=== PATIENT | male | born 1960 | race Caucasian/White ===

== ENCOUNTER 2016-11-18 13:16 | Emergency (ER) | payer OTHER ==
[~2016-11-18] VITALS: Ht 172.7 cm; Wt 85.1 kg
[~2016-11-18 13:16] MED LIST: DIAZ5TAB PO; GABA-502 PO; LORA2TAB PO; Muscle relaxer; NAPR500T PO; NPR500T PO; OXYC-474 PO
[2016-11-18 13:20] VITALS: BP 129/78; PULSE 110; RESP 20; O2SAT 95
[2016-11-18] MEDS ORDERED: DOXE10CA PO (13:27)
[2016-11-18] MEDS ORDERED: AMT25T PO ×2 (13:27)
[2016-11-18] MEDS ORDERED: AMOX500C2 PO (13:28)
[2016-11-18] MEDS ORDERED: CYCL10TA9 PO (13:28)
[2016-11-18] MEDS ORDERED: OXYC1TAB24 PO (13:28)
[2016-11-18] MEDS ORDERED: IBUP-1827 PO (13:28)
[2016-11-18] MEDS ORDERED: GABA800T2 PO (13:28)
--- NOTE | 2016-11-18 13:30 | ED.REPORT ---
HPI-Dental/Mouth Prob Date of Service Nov 18, 2016 ED Provider: History of Present Illness: 55-year-old male here with dental pain. On he saw his dentist and had his left central incisor anesthetized to have work done on it. The next day his left upper mouth started hurting, he was seen again and started on amoxicillin and pain meds. He took his amoxicillin yesterday and last took it at 5:30 this morning. Yesterday pain started right in the area where he received his anesthesia as well and is spreading across his upper lip. This is now the area of most pain. Denies fever or systemic symptoms. Nursing Notes Stated Complaint: FACE SWOLLEN Chief Complaint: Dental Nursing Notes Reviewed: Yes Allergies: Coded Allergies: hydrocodone (Verified Allergy, Unknown, 11/18/16) Scheduled Amitriptyline (Amitriptyline) 25 Mg Tab 25 MG PO QAM Amitriptyline (Amitriptyline) 25 Mg Tab 75 MG PO HS Amoxicillin (Amoxicillin) 500 Mg Capsule 500 MG PO TID Clindamycin HCl (Cleocin) 150 Mg Capsule 450 MG PO TID Doxepin (Doxepin) 10 Mg Capsule 20 MG PO HS Gabapentin (Gabapentin) 800 Mg Tablet 800 MG PO TID Ibuprofen (Ibuprofen) 600 Mg Tablet 600 MG PO TID Scheduled PRN Cyclobenzaprine (Cyclobenzaprine) 10 Mg Tablet 10 MG PO TID PRN PRN Spasm oxyCODONE-Acetaminophen 5-325 mg (oxyCODONE-Acetaminophen 5-325 mg) 1 Each Tablet 1 TAB PO Q6H PRN PRN For Pain General Time Seen by MD: 13:26 Chief Complaint Mouth pain Hx Obtained From: Patient Arrived By: Walk-in Onset Occurred: 2 days ago Context of Onset: Recent dental procedure Location: : Gum maxillary left: Gum maxillary right: Lip upper: Tooth upper R molar Severity: Current: Severe Severity: Maximum: Severe Recent Healthcare: Recent doctor visit Similar Sx Previous: No Past Medical History Past Medical History chronic back pain Past Surgical History lumbar spinal surgery Smoking History Current Every Day Smoker Social History Alcohol Use: In recovery Drug Use: THC Other Social History: Good social support, Local resident Ambulatory Status Independent Review of Systems Basic Review of Systems Eyes: Vision NL, No discharge Cardiovascular: No chest pain, No dyspnea on exertion, No orthopnea, No parox noct dyspnea, No palpitations Hematologic: No bleeding, No bruising Allergy / Immune: No allergy Neurologic: NL mental status, No weakness, No numbness Psychiatric: Normal thought content Physical Exam Initial Vital Signs Vital Signs (First) Date Time Temp Pulse Resp B/P Pulse Ox O2 Delivery O2 Flow Rate FiO2 11/18/16 13:20 36.6 110 20 129/78 95 Room Air Initial VS: Reviewed, Vital signs normal General/Constitutional: Well-developed, Well-nourished Head / Eyes: Atraumatic, Normocephalic, PERRL Respiratory: Breath sounds normal, Clear to auscultation, No respiratory distress Cardiovascular: Regular rate & rhythm, Heart sounds normal, Intact distal pulses Skin: Warm, Dry, No cyanosis Neurologic: Alert, Oriented, Nonfocal Psychiatric: Mood/affect normal, Behavior normal, Normal thought content ENT: Atraumatic, Airway patent, Mucous membranes moist, Pharynx NL, No peritonsillar abscess Dental / Gums: Positive: Decay extensive, Dental abscess (upper lip) induration, tenderness noted to upperlip. approx 2cm in total. mild swelling over L central incisor. no obvious white head. deeper palpable infection Neck: Supple, No meningismus, Full range of motion, No adenopathy, No swelling , Non-tender, No masses Respiratory / Chest: Breath sounds NL, Breath sounds = bilat, No respiratory distress, No rales, No rhonchi, No wheezing, No stridor Cardiovascular: Heart rate NL, Regular rhythm, Heart sounds NL, No murmurs, Peripheral circulation NL Procedures Procedure Notes: topical lidocaine applied to gums over L central incisor. Incision & Drainage Abscess I & D Abscess: #11 blade used to i&d area of most fluctuance, no drainage. Discharge & Departure Shift Change Sign-Out Response to Therapy: Improved Primary Impression: Dental abscess Disposition: Home Discharge Condition All VS Reviewed: Yes Condition: Stable Patient Instructions: Dental Abscess (ED) Additional Instructions: Follow-up with your dentist in 1-2 days. Take antibiotics as prescribed. Stop amoxicillin and start clindamycin. Do frequent mouth rinses. Return if fevers , worsening swelling or pain, or worsening condition at all. Return if worsening at all. Eating and drinking foods that do not require a lot of chewing and that do not produce pain. Referrals: Nagi Inman PA-C (PCP) EDSupervising Provider for APC: Ok Renteria Linnea K ARNP Nov 18, 2016 13:30
[2016-11-18] MEDS ORDERED: CLIN150C2 PO (14:45)
[2016-11-18 14:54] VITALS: BP 114/72; PULSE 114; RESP 18; O2SAT 96
== END 2016-11-18 14:55 | disposition home or self-care (01) ==
LOC: SED 13:16
DX: K04.7 Periapical abscess without sinus (principal); F17.200 Nicotine dependence, unspecified, uncomplicated; Z88.5 Allergy status to narcotic agent